=== PATIENT | female | born 1970 | race Caucasian/White ===

== ENCOUNTER 2018-08-19 15:08 | Emergency (ER) | payer BC ==
[~2018-08-19] VITALS: Wt 64.9 kg
[2018-08-19 16:07] LABS: HEMATOCRIT 42.9 % (37.0-47.0); HEMOGLOBIN 14.5 g/dL (12.5-16.0); MEAN CELL VOLUME 91 fl (78-100); MEAN CORPUSCULAR HEMOGLOBIN 31 pg (27-31); MEAN CORPUSCULAR HGB CONC 34 g/dL (33-37); MEAN PLATELET VOLUME 10.2 fl (7.4-10.4); MONO # 0.3 (0.20-0.80); NEU # 4.6 (1.40-6.50); PLATELET COUNT 169 K/mm3 (130-400); RED BLOOD COUNT 4.73 M/mm3 (4.10-5.30); RED CELL DISTRIBUTION WIDTH 12.2 % (11.5-14.5); WHITE BLOOD COUNT 5.8 K/mm3 (4.8-10.8)
[2018-08-19 16:18] LABS: ALBUMIN 4.7 g/dL (3.5-5.0); CALCIUM 9.8 mg/dL (8.4-10.2); TOTAL BILIRUBIN 1.5 mg/dL (0.2-1.3); TOTAL PROTEIN 7.8 g/dL (6.3-8.2)
[2018-08-19] MEDS ORDERED: ZOFRAN ODT4 MG PO (18:54)
[2018-08-19] MEDS ORDERED: VALIUM 5MG T5 MG/TAB PO (18:54)
[2018-08-19 18:56] VITALS: BP 119/62
== END 2018-08-19 19:07 | disposition home or self-care (01) ==
LOC: ED 15:08
PROVIDERS: Family Medicine
DX: R42 Dizziness and giddiness (principal)
CPT/HCPCS: J2405; J7030

== ENCOUNTER → 2018-08-24 | Outpatient (CLI) | payer BC ==
[2018-08-19 18:56] VITALS: BP 119/62
[~2018-08-24] MED LIST: VALIUM 5MG T5 MG/TAB PO; ZOFRAN ODT4 MG PO
== END ==
LOC: RAD 09:18
DX: I65.23 Occlusion and stenosis of bilateral carotid arteries (principal); R42 Dizziness and giddiness; I70.90 Unspecified atherosclerosis
CPT/HCPCS: Q9967

== ENCOUNTER → 2018-08-30 | Outpatient (CLI) | payer BC ==
[2018-08-19 18:56] VITALS: BP 119/62
[2018-08-31 11:14] LABS: C-REACTIVE PROTEIN XXX
[2018-08-31 16:06] LABS: FOLATE (FOLIC ACID) 5.4 ng/mL (7.0-31.4)
[2018-09-01 23:25] LABS: C-ANCA 13 U/mL (0-99)
== END ==
LOC: LAB 17:13
PROVIDERS: Internal Medicine Interventional Cardiology
DX: I77.6 Arteritis, unspecified (principal)

== ENCOUNTER → 2018-10-20 | Outpatient (CLI) | payer BC | LOC: RAD 08:17 | DX: I65.23 Occlusion and stenosis of bilateral carotid arteries (principal) | CPT/HCPCS: Q9967 ==

== ENCOUNTER → 2019-01-09 | Outpatient (CLI) | payer BC | LOC: LAB 18:24 | DX: E83.52 Hypercalcemia (principal); R53.83 Other fatigue ==

== ENCOUNTER → 2019-02-08 | Outpatient (CLI) | payer BC | LOC: RAD 16:39 | DX: R41.3 Other amnesia (principal) ==

== ENCOUNTER → 2020-04-07 | Outpatient (CLI) | payer BC ==
[2020-04-07 11:22] LABS: EOS # 0.1 (0.04-0.40); EOS % 1.5 % (1.0-5.0); HEMATOCRIT 41.4 % (37.0-47.0); HEMOGLOBIN 13.5 g/dL (12.5-16.0); LYMPH# 1.5 (1.50-4.00); MEAN CELL VOLUME 94 fl (78-100); MEAN CORPUSCULAR HEMOGLOBIN 31 pg (27-31); MEAN CORPUSCULAR HGB CONC 33 g/dL (33-37); MONO # 0.4 (0.20-0.80); PLATELET COUNT 188 K/mm3 (130-400)
[2020-04-07 11:39] LABS: ALBUMIN 4.4 g/dL (3.5-5.0); POTASSIUM 4.4 mmol/L (3.5-5.1)
[2020-04-07 11:40] LABS: CALCIUM 9.2 mg/dL (8.3-10.5)
[2020-04-07 11:41] LABS: TOTAL PROTEIN 7.8 g/dL (6.4-8.3)
[2020-04-07 11:43] LABS: TOTAL BILIRUBIN 0.6 mg/dL (0.2-1.2)
== END ==
LOC: LAB 11:08
PROVIDERS: Family Medicine
DX: Z00.00 Encounter for general adult medical examination without abnormal findings (principal); E78.5 Hyperlipidemia, unspecified; E53.9 Vitamin B deficiency, unspecified

== ENCOUNTER → 2021-05-04 | Outpatient (CLI) | payer BC ==
[~2021-05-04] MED LIST changes: +ARICEPT10 M1 PO; +CIPRO500 M1 PO; +NAMENDA10 MG PO; +NORCO 325 MG-51 TA1 PO; +ZOFRAN4 M2 PO; +ZOLOFT25 M1 PO
[2021-05-04 09:31] LABS: BASO # 0.02 K/mm3 (0.02-0.10); EOS % 2.5 % (1.0-5.0); HEMATOCRIT 41.2 % (37.0-47.0); HEMOGLOBIN 13.2 g/dL (12.5-16.0); LYMPH# 1.87 K/mm3 (1.50-4.00); MEAN CELL VOLUME 97 fl (78-100); MEAN CORPUSCULAR HEMOGLOBIN 31 pg (27-31); MEAN CORPUSCULAR HGB CONC 32 g/dL (33-37); MEAN PLATELET VOLUME 9.5 fl (7.4-10.4); MONO # 0.38 K/mm3 (0.20-0.80); NEU # 1.64 K/mm3 (1.40-6.50); PLATELET COUNT 228 K/mm3 (130-400); RED BLOOD COUNT 4.24 M/mm3 (4.10-5.30); RED CELL DISTRIBUTION WIDTH 12.7 % (11.5-14.5)
[2021-05-04 09:36] LABS: ALBUMIN 4.3 g/dL (3.5-5.0); POTASSIUM 4.2 mmol/L (3.5-5.1)
[2021-05-04 09:37] LABS: CALCIUM 9.1 mg/dL (8.3-10.5)
[2021-05-04 09:39] LABS: TOTAL PROTEIN 7.1 g/dL (6.4-8.3)
[2021-05-04 09:40] LABS: TOTAL BILIRUBIN 0.7 mg/dL (0.2-1.2)
== END ==
LOC: LAB 09:14
PROVIDERS: Family Medicine
DX: Z00.00 Encounter for general adult medical examination without abnormal findings (principal); E78.5 Hyperlipidemia, unspecified; E55.9 Vitamin D deficiency, unspecified

== ENCOUNTER → 2021-10-23 | Outpatient (CLI) | payer BC ==
[2021-10-23 13:41] LABS: URINE COLOR YELLOW
[2021-10-23 13:42] LABS: URINE APPEARANCE CLOUDY; URINE BILIRUBIN NEGATIVE (NEGATIVE); URINE BLOOD TRACE (NEGATIVE); URINE GLUCOSE NEGATIVE (NEGATIVE); URINE KETONE 1+ (NEGATIVE); URINE LEUKOCYTE ESTERASE TRACE (NEGATIVE); URINE NITRATE NEGATIVE (NEGATIVE); URINE PROTEIN(semi-quant) NEGATIVE (NEGATIVE); URINE UROBILINOGEN NORMAL (NORMAL)
[2021-10-23 13:49] LABS: URINE MUCUS PRESENT (NOT PRESENT)
== END ==
LOC: LAB 13:25
PROVIDERS: Nurse Practitioner Primary Care
DX: Z01.89 Encounter for other specified special examinations (principal)